=== PATIENT | male | born 1950 | race Caucasian/White ===

== ENCOUNTER 2017-10-01 08:25 | Day surgery (SDC) | payer MEDICARE, OTHER ==
[2017-10-01] MEDS ORDERED: PROPOFOL 40 ML (10:14)
== END 2017-10-01 10:36 | disposition home or self-care (01) ==
LOC: GIL 08:25
DX: D12.6 Benign neoplasm of colon, unspecified (principal); K64.8 Other hemorrhoids; E11.9 Type 2 diabetes mellitus without complications; I10 Essential (primary) hypertension; E78.5 Hyperlipidemia, unspecified
CPT/HCPCS: 45380; 88305